=== PATIENT | female | born 1995 | race Caucasian/White ===

== ENCOUNTER 2020-09-21 10:53 | Outpatient (REF) | payer MEDICARE, MEDICAID, SELFPAY | END 2020-09-21 10:54 | disposition home or self-care (01) | LOC: HO.LAB 10:53 | PROVIDERS: Visit Provider Internal Medicine | DX: Z20.828 Contact with and (suspected) exposure to other viral communicable diseases (principal) | CPT/HCPCS: C9803; U0003 ==

== ENCOUNTER 2020-10-10 10:56 | Emergency (ER) | payer MEDICARE, MEDICAID, SELFPAY ==
[2020-10-10 10:59] VITALS: BP 107/59; PULSE 94; RESP 16; TEMP 36.1; O2SAT 98; BMI 37.2
[2020-10-10 11:38] LABS: UPreg QC Valid YES; Urine Pregnancy POSITIVE (NEGATIVE)
--- NOTE | 2020-10-10 12:07 | ED.SKABFB ---
HPI - Skin/Abscess/Foreign Bdy General Chief complaint: Skin/Abscess/Foreign Body Stated complaint: lump on face Time Seen by Provider: 10/10/20 11:11 Source: patient Mode of arrival: ambulatory Limitations: no limitations History of Present Illness complaint: abscess/boil Onset (ago): day(s) (2 days ) Tetanus up to date: yes Location: face (Tender area to the right side face just above the lip.) Severity: mild Context: none Treatments prior to arrival: none Related Data Previous Rx's Medication Instructions Recorded cephalexin [Keflex] 500 mg PO Q8H 7 Days #21 cap 10/10/20 mupirocin 1 appl TOPICAL TID 7 Days #22 g 10/10/20 Allergies Allergy/AdvReac Type Severity Reaction Status Date / Time perfume Allergy Unknown RESPIRATORY Verified 10/10/20 10:59 pollen extracts [POLLEN] Allergy Unknown HIVES Verified 10/10/20 10:59 DUST Allergy Unknown HIVES Uncoded 10/10/20 10:59 Review of Systems Review of Systems: Constitutional: No Weight loss, No Fever, No Chills, No Night Sweats, No Fatigue, No Malaise ENT/Mouth: No Hearing loss, No Ear Pain, No Nasal Congestion, No Sinus Pain, No Hoarseness, No sore throat, No Rhinorrhea, No Swallowing Difficulty Eyes: No Eye Pain, No Swelling, No Redness, No Foreign Body, No Discharge, No Vision Changes Cardiovascular: No Chest Pain, No SOB, No Dyspnea on Exertion, No Orthopnea, No Edema, No Palpitations Respiratory: No Cough Gastrointestinal: No abdominal Pain Musculoskeletal: No joint pain, No Myalgias, No Joint Swelling Skin: No Skin Lesions, No rash, as noted HPI Neuro: No Weakness, No Numbness, No Paresthesias, No Loss of Consciousness, No Dizziness, No Headache Psych: No Social Issues Heme/Lymph: No Bruising, No Bleeding,No Lymphadenopathy Endocrine: No Polyuria, No Polydipsia, No Temperature Intolerance Yes all other systems are reviewed and are negative [facility] Past Medical History Medical History (Updated 10/11/20 @ 00:00 by Background Daemon) Asthma Shingles Social History Social History Advance Directives: No Advance Directives Information Provided: Yes Physical Exam Vital Signs: Vital Signs: Last Vital Signs Temp 97.0 F 10/10/20 10:59 Pulse 94 12/23/20 10:59 Resp 16 10/10/20 10:59 BP 107/59 L 10/10/20 10:59 Pulse Ox 98 10/10/20 10:59 Body Mass Index 37.2 Reviewed Const: General: cooperative, healthy appearing and Physically active HENMT: Head: Yes normal to inspection Head images: 1. Less than 1 cm annular indurated area consistent with small developing abscess from follicular infection. Manual able to express very small amount of purulent discharge with and massage. No overt cellulitis or cellulitis. Assessment of any portion of the lip. This is just at the mid right nasolabial fold. Eyes: General: appearance normal, both eyes and all related structures Neck: Neck: Yes normal visual inspection Thyroid: Thyroid normal and asymmetrical Chest: Chest palpation & inspection: normal inspection of the chest Resp: Auscultation: clear to auscultation bilaterally Cardio: Rhythm: regular rhythm Heart sounds: S1 normal heart sound present and S2 normal heart sound present GI: Palpation (GI): Soft to palpation Course Course Course Narrative: Just prior to discharge states that she is also a week late for her period.- urine was requested which is positive. No overt infection. No complaints of pain or discomfort or nausea vomiting. based on last menstrual cycle she is currently 4 weeks 4 days gestation with estimated due date of 06/08/2021. At this point given that she is asymptomatic will advise her to follow up with her OBGYN team. MDM - Skin/Abscess/Foreign Bdy Lab Data Labs: Lab Results 10/10/20 Range/Units 11:25 Urine Test POSITIVE H (NEGATIVE) Discharge Plan Discharge Clinical Impression: Positive test, Folliculitis Patient Disposition: Home, Self-Care Instructions: (ED), Folliculitis (ED) Additional Instructions: You have a hair follicle infection just below the nose on the right side. This will require compresses Keep site clean and dry Use a topical antibiotic as prescribed Take oral antibiotic as prescribed Also because your 4 days late on her. UA as for test and urine test was positive today. Congratulations Follow-up with Dr. Woods as discussed Return if any concerns or worsening symptoms Thank you Prescriptions: New cephalexin [Keflex] 500 mg capsule 500 mg PO Q8H 7 Days Qty: 21 RF: 0 mupirocin 2 % ointment 1 appl topical TID 7 Days Qty: 22 RF: 0 Referrals: Je Woods MD [Physician] - 1 week Interventions: ED Discharge Assessment Last Done: 10/10/20 12:30 Discharge Date/Time: 10/10/20 12:30
== END 2020-10-10 12:30 | disposition home or self-care (01) ==
PROVIDERS: Nurse Practitioner Primary Care; Emergency Provider Emergency Medicine
DX: L73.9 Follicular disorder, unspecified (principal); Z32.01 Encounter for pregnancy test, result positive
CPT/HCPCS: 81025; 99283

== ENCOUNTER → 2020-10-24 10:16 | Outpatient (BNVA) | payer MEDICARE, MEDICAID, SELFPAY | PROVIDERS: Visit Provider Advanced Practice Midwife | DX: N92.6 Irregular menstruation, unspecified (principal); F43.10 Post-traumatic stress disorder, unspecified; Z79.899 Other long term (current) drug therapy | CPT/HCPCS: 99212 ==

== ENCOUNTER 2020-11-01 12:40 | Outpatient (REF) | payer MEDICARE, MEDICAID, SELFPAY ==
--- NOTE | 2020-11-01 12:42 | US_ITS ---
EXAMINATION: US OB LESS THAN 14 WEEKS CLINICAL INFORMATION: Irregular menses. COMPARISON: None TECHNIQUE: Transabdominal ultrasound of pelvis is performed. FINDINGS: There is a single intrauterine gestational sac and a single live fetus with a crown-rump length of 1.59 cm corresponding to 8 weeks, 0 days and VIRY of 06/13/2021. There is visualization of yolk sac and heart beat. The heart rate is 170 bpm. The right ovary measures 3.8 x 2.2 x 2.5 cm. Left ovary measures 3.6 x 2.1 x 3.3 cm. Both ovaries are unremarkable. There is no free fluid in the cul-de-sac. US/US OB <= 14 weeks fetus IMPRESSION: Single live intrauterine fetus with an ultrasound gestational age of 8 weeks and 0 days.
== END 2020-11-01 12:41 | disposition home or self-care (01) ==
LOC: HO.US 12:40
PROVIDERS: Visit Provider Advanced Practice Midwife
DX: O26.891 Other specified pregnancy related conditions, first trimester (principal); N92.6 Irregular menstruation, unspecified; Z3A.08 8 weeks gestation of pregnancy
CPT/HCPCS: 76801

== ENCOUNTER → 2020-11-30 13:15 | Outpatient (BNVA) | payer MEDICARE, MEDICAID, SELFPAY | PROVIDERS: Visit Provider Advanced Practice Midwife ==

== ENCOUNTER 2020-12-19 10:55 | Emergency (ER) | payer MEDICARE, MEDICAID, SELFPAY ==
--- NOTE | ~2020-12-19 | US_ITS ---
EXAMINATION: ULTRASOUND OB LIMITED. CLINICAL INFORMATION: Clinically 14 weeks. Unable to feel movements x2 days COMPARISON: None TECHNIQUE: Transabdominal ultrasound pelvis is performed. FINDINGS: There is intrauterine fetus with a heart rate of 150 bpm. There is visualization of pole and motion. Yolk sac is not seen. Right ovary measures 2.4 x 1.5 x 2.0 cm and appears unremarkable. Left ovary measures 3.3 x 1.9 x 2.8 seen. There is a heterogenous area in the anterior mid body of uterus, question fibroid versus contraction. There is no free fluid in the pelvis. US/US OB limited IMPRESSION: Live intrauterine fetus with a heart rate of 150 beats per minute The ovaries are unremarkable. Heterogeneous lesion anterior body of uterus likely fibroid or contraction.
--- NOTE | ~2020-12-19 | XR_ITS ---
EXAMINATION: XR CHEST CLINICAL INFORMATION: Dry cough, shortness of breath COMPARISON: Chest radiographs 07/15/2020 TECHNIQUE: Frontal view of the chest was obtained. FINDINGS: The lungs are clear. There is no pneumothorax, pleural reaction, airspace consolidation, or effusion. The heart is normal in size. The hilar and mediastinal contours and visualized bony structures are unremarkable. XR/XR chest 1V IMPRESSION: Unremarkable examination.
[2020-12-19 11:00] VITALS: BP 144/71; PULSE 88; RESP 14; TEMP 37.2; O2SAT 98; BMI 41.0
--- NOTE | 2020-12-19 12:24 | PC.NURSE ---
blood work drawn and sent, covid swab sent. us complteed at bedside, pt c/o rib pain, provider aware. pt drinking diet jojo jorge, tolerating po w/o issue.
[2020-12-19 12:25] LABS: MANUAL DIFF FLAG NO
[2020-12-19 12:26] LABS: Basophils Percent Auto 0.3 % (0-2); Eosinophils Absolute Auto 0.1 X10*3/uL (0.0-0.4); Eosinophils Percent Auto 0.8 % (0-4); Hematocrit 35.3 % (37-47); Hemoglobin 11.3 g/dl (12.0-16.0); Imm Gran Abs Auto 0.04 X10*3/uL (0.00-0.03); Imm Gran Pct Auto 0.3 % (0.0-0.4); Lymphocytes Absolute Auto 2.1 X10*3/uL (1.2-4.9); Lymphocytes Percent Auto 17.9 % (20-40); Mean Corpuscular Hemoglobin 27.4 pg (27.0-33.0); Mean Corpuscular Volume 85.5 fL (80-98); Mean Platelet Volume 11.5 fL (9.4-12.3); Monocytes Absolute Auto 0.6 X10*3/uL (0.1-1.2); Monocytes Percent Auto 4.8 % (2-11); Neutrophils Percent Auto 75.9 % (45-73); Platelet Count 248 X10*3/uL (160-400); Red Blood Count 4.13 X10*6/uL (4.20-5.50); Red Cell Distribution Width 12.9 % (11.0-16.0); White Blood Count 11.8 X10*3/uL (4.8-10.8)
[2020-12-19 12:33] LABS: INTERNATIONAL NORM RATIO 1.1 (0.9-1.1); Prothrombin Time 12.5 SEC (10.8-13.0)
[2020-12-19 12:45] LABS: COVID-19 Test Negative (Negative); IDNOW Serial# 9DD0AD1C
[2020-12-19 13:02] LABS: Alanine Aminotransferase 11 U/L (0-31); Alkaline Phosphatase 91 U/L (39-117); Anion Gap 12 (12-20); Aspartate Amino Transferase 13 U/L (5-31); Bilirubin Direct 0.2 mg/dL (0.0-0.5); Bilirubin Total 0.8 mg/dL (0.0-1.0); Blood Urea Nitrogen 11 mg/dL (9-16); Calcium 8.8 mg/dL (8.4-10.2); Carbon Dioxide 23 mmol/L (22-29); Chloride 105 mmol/L (96-108); Creatinine Clr Calc Pharmacy 134.2; Estimated Glomerular Filt Rate > 60; Glucose Random 85 mg/dL (60-115); Magnesium 1.8 mg/dL (1.6-2.6); Potassium 4.2 mmol/L (3.3-5.1); Sodium 136 mmol/L (135-145); Total Protein 6.7 g/dL (6.5-8.0)
[2020-12-19] MEDS: Albuterol Sulfate (0.083%) 2.5 MG/3 ML VIAL.NEB 10 MG INHALE (13:02)
[2020-12-19 13:06] VITALS: PULSE 78; O2SAT 100
[2020-12-19 13:47] LABS: HCG Quantitative 43489 mIU/mL
[2020-12-19] MEDS: Acetaminophen 325 MG TABLET 975 MG PO (13:47)
--- NOTE | 2020-12-19 13:53 | ED_ITS ---
HPI - Asthma General Chief Complaint: Dyspnea Stated Complaint: asthma, , hasn't felt baby move in 2 days Time Seen by Provider: 12/19/20 11:12 Source: patient Mode of arrival: ambulatory Limitations: no limitations History of Present Illness HPI Narrative: 25-year-old female who is approximately 16 weeks with a past medical history of asthma presenting to the ED with complaints of a dry cough with rib cage pain with coughing since yesterday worse today. Reports that she does not have any asthma medication due to her asthma only flares up when she is under a lot of stress. Reports that she is currently in a halfway with her other 3 kids and just got an apartment therefore she will soon be out of the halfway. Reports she was also concerned due to she has not felt her baby move in the past 4 days. Denies any headaches, dizziness, lightheadedness, changes in vision, nausea/vomiting, chest pain, dyspnea on exertion, orthopnea, palpitations, abdominal pain, vaginal discharge, vaginal bleeding, dysuria, hematuria, back pain or lower extremity edema. Denies recent travel or sick contacts. MD complaint: asthma attack , shortness of breath and wheezing Onset (ago): day(s) (2 days ) Severity: moderate and worse than usual Context: none known Associated symptoms: dry cough Asthma History: childhood onset Related Data Current Asthma Therapy: none Previous Rx's Medication Instructions Recorded cephalexin [Keflex] 500 mg PO Q8H 7 Days #21 cap 10/10/20 mupirocin 1 appl TOPICAL TID 7 Days #22 g 10/10/20 doxylamine succinate 25 mg tablet 12.5 mg PO BEDTIME PRN #30 tab 10/29/20 vitamins with calcium 1 tab PO DAILY 30 Days #30 tab 10/29/20 no.72-iron 29 mg-folic acid 1 mg tablet pyridoxine (vitamin B6) 25 mg 25 mg PO TID 30 Days #90 tab 10/29/20 tablet acetaminophen [Tylenol Extra 1,000 mg PO QID PRN #14 tab 12/19/20 Strength] albuterol sulfate 0.63 mg INHALATION QID PRN #75 ml 12/19/20 albuterol sulfate 1 inh INHALATION QID PRN #8.5 g 12/19/20 azithromycin See Rx Instructions .ROUTE 12/19/20 .COMPLEX #6 tab nebulizers [AeroEclipse II #1 ea 12/19/20 Nebulizer] oxycodone 5 mg PO BID PRN #10 tab 12/19/20 prednisone 40 mg PO DAILY 5 Days #10 tab 12/19/20 Allergies Allergy/AdvReac Type Severity Reaction Status Date / Time perfume Allergy Unknown RESPIRATORY Verified 10/24/20 10:31 pollen extracts [POLLEN] Allergy Unknown HIVES Verified 10/24/20 10:31 DUST Allergy Unknown HIVES Uncoded 10/10/20 10:59 Review of Systems Review of Systems: Constitutional : denies med noncompliance, no history of PE or DVT, denies recent travel, No Fever, No Chills ENT/Mouth : No Hoarseness, No sore throat, No Rhinorrhea Eyes: No Redness, No Discharge, No Vision Changes Cardiovascular : No Chest Pain, No SOB, No Dyspnea on Exertion, No Edema, no pleurisy, Respiratory : + Cough, No Sputum, no stridor, no hemoptysis, Gastrointestinal : No Nausea, No Vomiting, No Diarrhea, No abdominal Pain Genitourinary : No Dysuria, No Hematuria, no vaginal bleeding Musculoskeletal : No joint pain, No Myalgias Extremities: no extremity swelling /pain Skin : No rash, no itching, no swelling Neuro : No Weakness, No Numbness, No Headache Psych : No anxiety, depression Heme/Lymph: No Bruising, No Bleeding Endocrine : No Polyuria, No Polydipsia Yes all other systems are reviewed and are negative [facility] Past Medical History Attestation statement: The following information was validated with the patient. Medical History Asthma PTSD (post-traumatic stress disorder) Shingles Surgical History History of 3 sections Social History Social History Alcohol intake: never Smoking Status: Never smoker Use of substances other than those prescribed or required for medical reasons: No Substance Use Type: Marijuana Advance Directives: No Advance Directives Information Provided: No Gender identity: female Physical Exam Vital Signs: Vital Signs: Last Vital Signs Temp 98.9 F 12/19/20 11:00 Pulse 78 12/19/20 13:06 Resp 14 12/19/20 11:00 BP 144/71 H 12/19/20 11:00 Pulse Ox 98 12/19/20 11:00 Body Mass Index 41.0 vital signs have been reviewed as normal and appeared to be correct. Blood pressure normal. Heart rate normal. Respiration rate normal. Temperature normal. Oxygen saturation normal. Appearance: Alert. Oriented X3. No acute distress. Head: Normal external exam. Normocephalic. Eyes: PERRLA. EOMI. Conjunctiva and sclera normal. Eyelids normal. ENT: Pharynx normal. Uvula midline. Moist mucous membranes. No trismus noted. No drooling noted. No muffled voice noted. Neck: Normal inspection. Neck supple. FROM. No adenopathy. No meningeal signs. CVS: Normal heart rate and rhythm. Heart sound normal. No murmurs noted. Pulses normal throughout. Respiratory: No respiratory distress. Painless inspiration. Breath sounds normal. Positive inspiratory and expiratory wheezing throughout. No rales/rhonchi noted. Chest nontender. No accessory muscle usage noted or decreased air movement noted. Abdomen: Gravid uterus consistent with dates. Soft and nontender. Nondistended. No guarding. No rigidity. Bowel sounds normal in all 4 quadrants. No distention noted. No organomegaly noted. No visible injury noted. No rebound tenderness. Negative Rovsing sign. Negative obturator's sign. Negative psoas sign. Negative Humphrey sign. Back: No CVA tenderness. Full range of motion noted. Skin: Skin warm and dry. Normal skin color. Normal skin turgor. No rashes/lesions/lacerations noted. Extremities: Extremities exhibit normal range of motion. No calf tenderness noted. Extremities nontender. Neuro: Oriented X 3. No motor deficit. No sensory deficit. Reflexes normal. Course Course Course Narrative: 25-year-old female who is approximately 16 weeks with a past medical history of asthma presenting to the ED with complaints of a dry cough with rib cage pain with coughing since yesterday worse today. Patient also concerned of not feeling the movement for the past 4 days. - labs obtained patient mildly elevated white blood cell count 37240. Otherwise all other labs are within normal limits. Serum quant appropriately elevated. COVID swab negative. Chest x-ray negative for pneumonia or any other acute processes. ultrasound revealed live intrauterine fetus with heart rate of 150 the ovaries are unremarkable they are questioning a fibroid I consulted with Dr. Woods and he reported that is probably a fibroid and stated anyway pre term labor by definition is after 20 weeks and patient is only 16 weeks. - therefore will DC home with antibiotics and symptomatic treatment along with oxycodone for the patient's ribcage pain when she coughs I explained to her that the oxycodone can pass into the placenta and she understands the risks and she still wanted the oxycodone. Along with instructions to return if any new or worsening symptoms to follow up with PCP/OBGYN stencil sprayer. Patient understands agrees with plan. MDM - Asthma Medical Records Attestation: I reviewed the patient's medical records. Lab Data Attestation: I reviewed the patient's lab results. Result diagrams: 12/19/20 12:18 12/19/20 12:18 Labs: Lab Results 12/19/20 12/19/20 12/19/20 Range/Units 12:18 12:18 12:18 WBC 11.8 H (4.8-10.8) X10*3/uL RBC 4.13 L (4.20-5.50) X10*6/uL Hgb 11.3 L (12.0-16.0) g/dl Hct 35.3 L (37-47) % MCV 85.5 (80-98) fL MCH 27.4 (27.0-33.0) pg MCHC 32.0 (31.0-35.0) g/dl RDW 12.9 (11.0-16.0) % Plt Count 248 (160-400) X10*3/uL MPV 11.5 (9.4-12.3) fL Immature Gran % (Auto) 0.3 (0.0-0.4) % Neut % (Auto) 75.9 H (45-73) % Lymph % (Auto) 17.9 L (20-40) % Amador % (Auto) 4.8 (2-11) % Eos % (Auto) 0.8 (0-4) % Baso % (Auto) 0.3 (0-2) % Lymph # (Auto) 2.1 (1.2-4.9) X10*3/uL Amador # (Auto) 0.6 (0.1-1.2) X10*3/uL Eos # (Auto) 0.1 (0.0-0.4) X10*3/uL Baso # (Auto) 0.0 (0.0-0.2) X10*3/uL Abs Immat Gran (auto) 0.04 H (0.00-0.03) X10*3/uL Absolute Neuts (auto) 9.0 H (2.0-8.3) X10*3/uL Absolute Nucleated RBC 0.000 (0.0-0.012) X10*3/uL Nucleated RBC % (auto) 0.0 (0.0-0.2) /100WBC PT (10.8-13.0) SEC INR (0.9-1.1) Sodium 136 (135-145) mmol/L Potassium 4.2 (3.3-5.1) mmol/L Chloride 105 (96-108) mmol/L Carbon Dioxide 23 (22-29) mmol/L Anion Gap 12 (12-20) BUN 11 (9-16) mg/dL Creatinine 0.65 (0.5-1.4) mg/dL Estim Creat Clear Calc 134.2 Estimated GFR > 60 Random Glucose 85 (60-115) mg/dL Calcium 8.8 (8.4-10.2) mg/dL Magnesium 1.8 (1.6-2.6) mg/dL Total Bilirubin 0.8 (0.0-1.0) mg/dL Direct Bilirubin 0.2 (0.0-0.5) mg/dL AST 13 (5-31) U/L ALT 11 (0-31) U/L Alkaline Phosphatase 91 (39-117) U/L Total Protein 6.7 (6.5-8.0) g/dL Albumin 4.0 (3.5-5.0) g/dL Beta HCG, Quant mIU/mL COVID-19 (JOEY) Negative (Negative) COVID-19 Clin Com See Note 12/19/20 12/19/20 Range/Units 12:18 12:18 WBC (4.8-10.8) X10*3/uL RBC (4.20-5.50) X10*6/uL Hgb (12.0-16.0) g/dl Hct (37-47) % MCV (80-98) fL MCH (27.0-33.0) pg MCHC (31.0-35.0) g/dl RDW (11.0-16.0) % Plt Count (160-400) X10*3/uL MPV (9.4-12.3) fL Immature Gran % (Auto) (0.0-0.4) % Neut % (Auto) (45-73) % Lymph % (Auto) (20-40) % Amador % (Auto) (2-11) % Eos % (Auto) (0-4) % Baso % (Auto) (0-2) % Lymph # (Auto) (1.2-4.9) X10*3/uL Amador # (Auto) (0.1-1.2) X10*3/uL Eos # (Auto) (0.0-0.4) X10*3/uL Baso # (Auto) (0.0-0.2) X10*3/uL Abs Immat Gran (auto) (0.00-0.03) X10*3/uL Absolute Neuts (auto) (2.0-8.3) X10*3/uL Absolute Nucleated RBC (0.0-0.012) X10*3/uL Nucleated RBC % (auto) (0.0-0.2) /100WBC PT 12.5 (10.8-13.0) SEC INR 1.1 (0.9-1.1) Sodium (135-145) mmol/L Potassium (3.3-5.1) mmol/L Chloride (96-108) mmol/L Carbon Dioxide (22-29) mmol/L Anion Gap (12-20) BUN (9-16) mg/dL Creatinine (0.5-1.4) mg/dL Estim Creat Clear Calc Estimated GFR Random Glucose (60-115) mg/dL Calcium (8.4-10.2) mg/dL Magnesium (1.6-2.6) mg/dL Total Bilirubin (0.0-1.0) mg/dL Direct Bilirubin (0.0-0.5) mg/dL AST (5-31) U/L ALT (0-31) U/L Alkaline Phosphatase (39-117) U/L Total Protein (6.5-8.0) g/dL Albumin (3.5-5.0) g/dL Beta HCG, Quant 87339 mIU/mL COVID-19 (JOEY) (Negative) COVID-19 Clin Com Imaging Data Chest x-ray: Attestation: I personally reviewed and interpreted this imaging study as follows: Radiologist's impression: FINDINGS: The lungs are clear. There is no pneumothorax, pleural reaction, airspace consolidation, or effusion. The heart is normal in size. The hilar and mediastinal contours and visualized bony structures are unremarkable. XR/XR chest 1V IMPRESSION: Unremarkable examination. ultrasound: Attestation: I personally reviewed and interpreted this imaging study as follows: Radiologist's impression: FINDINGS: There is intrauterine fetus with a heart rate of 150 bpm. There is visualization of pole and motion. Yolk sac is not seen. Right ovary measures 2.4 x 1.5 x 2.0 cm and appears unremarkable. Left ovary measures 3.3 x 1.9 x 2.8 seen. There is a heterogenous area in the anterior mid body of uterus, question fibroid versus contraction. There is no free fluid in the pelvis. US/US OB limited IMPRESSION: Live intrauterine fetus with a heart rate of 150 beats per minute The ovaries are unremarkable. Heterogeneous lesion anterior body of uterus likely fibroid or contraction. Discharge Plan Discharge Clinical Impression: Asthma with exacerbation, Normal Patient Disposition: Home, Self-Care Instructions: Asthma (ED) Additional Instructions: I had a lengthy conversation about narcotics during and the oxycodone being able to pass into the placenta you were comfortable with having an oxycodone prescription due to your reported the Tylenol was not helping her ribcage pain. Take as prescribed. Return if any new or worsening symptoms and follow-up with your primary care provider/OBGYN/stencil sprayer. Prescriptions: New azithromycin 250 mg tablet See Rx Instructions .ROUTE .COMPLEX Qty: 6 RF: 0 acetaminophen [Tylenol Extra Strength] 500 mg tablet 1,000 mg PO QID PRN (Reason: fever or pain) Qty: 14 RF: 0 oxycodone 5 mg tablet 5 mg PO BID PRN (Reason: pain) Qty: 10 RF: 0 albuterol sulfate 0.63 mg/3 mL solution for nebulization 0.63 mg inhalation QID PRN (Reason: shortness of breath or wheezing) Qty: 75 RF: 0 prednisone 20 mg tablet 40 mg PO DAILY 5 Days Qty: 10 RF: 0 albuterol sulfate 90 mcg/actuation HFA aerosol inhaler 1 inh inhalation QID PRN (Reason: shortness of breath or wheezing) Qty: 8.5 RF: 0 (DME) AeroEclipse II Nebulizer Misc See Rx Instructions .ROUTE .MEDSUPPLY Qty: 1 RF: 0 No Action Unisom (doxylamine) 25 mg tablet 12.5 mg PO BEDTIME PRN (Reason: sleep) Qty: 30 RF: 0 pyridoxine (vitamin B6) 25 mg tablet 25 mg PO TID 30 Days Qty: 90 RF: 1 Plus 29 mg iron- 1 mg tablet 1 tab PO DAILY 30 Days Qty: 30 RF: 11 cephalexin [Keflex] 500 mg capsule 500 mg PO Q8H 7 Days Qty: 21 RF: 0 mupirocin 2 % ointment 1 appl topical TID 7 Days Qty: 22 RF: 0 Referrals: [facility] [Primary Care Provider] - 2 days Print Language: Pashto
== END 2020-12-19 14:24 | disposition home or self-care (01) ==
PROVIDERS: Physician Assistant Medical; Emergency Provider Emergency Medicine
DX: J45.901 Unspecified asthma with (acute) exacerbation (principal); R06.00 Dyspnea, unspecified; Z20.822 Contact with and (suspected) exposure to COVID-19
CPT/HCPCS: 36415; 71045; 76815; 80048; 80076; 83735; 84702; 85025; 85610; 87635; 94640; 94644; 99284

== ENCOUNTER 2023-07-20 15:59 | Outpatient (REF) | payer MEDICARE, MEDICAID, SELFPAY ==
[2023-07-20 17:57] LABS: Alanine Aminotransferase 76 U/L (0-31); Albumin Level 4.1 g/dL (3.5-5.0); Alkaline Phosphatase 131 U/L (39-117); Amylase 52 U/L (28-100); Anion Gap 12 (12-20); Aspartate Amino Transferase 77 U/L (5-31); Bilirubin Total 0.4 mg/dL (0.0-1.0); Blood Urea Nitrogen 9 mg/dL (9-16); Calcium 8.5 mg/dL (8.4-10.2); Carbon Dioxide 28 mmol/L (22-29); Chloride 102 mmol/L (96-108); Estimated Glomerular Filt Rate > 60; Glucose Random 92 mg/dL (60-115); Lipase 18 U/L (8-78); Potassium 3.8 mmol/L (3.3-5.1); Sodium 138 mmol/L (135-145); Total Protein 7.3 g/dL (6.5-8.0)
[2023-07-20 18:36] LABS: Erythrocyte Sedimentation Rate 8 MM/HR (0-20)
[2023-07-21 08:22] LABS: HBsAGNum1 0.26 S/CO (0.00-0.99); Hepatitis A Antibody IgM 0.22 Index (0-0.79); Hepatitis B Core Antibody Nonreactive (Nonreactive); Hepatitis B Surface Antigen Negative (Negative); ~HepC Num1 0.18 S/CO (0.00-0.79); ~Hepatitis A Antibody IgM Nonreactive (Nonreactive); ~Hepatitis B Surface Antibody REACTIVE (Nonreactive); ~Hepatitis C Antibody Nonreactive (Nonreactive)
[2023-07-23 13:44] LABS: Gliadin Deamidated IgA Ab <1.0 U/mL; Gliadin Deamidated IgG Ab <1.0 U/mL; Transglutaminase Ab IgG 27.4 U/mL; Transglutaminase IgA <1.0 U/mL
[2023-07-23 16:04] LABS: Immunoglobulin A 256 mg/dL (47-310)
[2023-07-28 13:19] LABS: Endomysial IgA Antibody Negative (Negative)
== END 2023-07-20 16:00 | disposition home or self-care (01) ==
LOC: HO.HHCL 15:59
PROVIDERS: Visit Provider Emergency Medicine
DX: R10.84 Generalized abdominal pain (principal); Z11.59 Encounter for screening for other viral diseases; Z72.89 Other problems related to lifestyle
CPT/HCPCS: 36415; 80053; 82150; 82274; 82784; 83690; 85652; 86231; 86258; 86364; 86704; 86706; 86709; 86803; 87338; 87340

== ENCOUNTER 2023-07-24 20:16 | Emergency (ER) | payer MEDICARE, MEDICAID, SELFPAY ==
[2023-07-24 20:45] VITALS: BP 150/101; PULSE 80; RESP 18; TEMP 37.1; O2SAT 99; BMI 42.8
--- NOTE | 2023-07-25 00:01 | ED.GENADULT ---
HPI - General Adult General Chief complaint: Wound/Laceration Stated complaint: finger infection, blood pressure has been high Time Seen by Provider: 07/24/23 23:32 Source: patient, RN notes reviewed and old records reviewed Mode of arrival: ambulatory Limitations: no limitations History of Present Illness HPI narrative: 28-year-old female presents for evaluation of pain to her right 3rd finger. She reports that she had some redness and a bump to the area for the last 4 days that has been getting larger and more painful Patient went to [facility] 2 days ago and was told ?just soak in hot water every 4 hours. She reports that she has been doing this without any improvement and believes her symptoms are actually getting worse Denies any fevers Patient does not have diabetes Related Data Previous Rx's Medication Instructions Recorded cephalexin 500 mg capsule (Keflex) 500 mg PO Q8H 7 days #21 caps 10/10/20 mupirocin 2 % topical ointment 1 appl topical TID 7 days #22 grams 10/10/20 doxylamine succinate 25 mg tablet 12.5 mg (1/2 x 25 mg) PO BEDTIME 10/29/20 (Unisom (doxylamine)) PRN sleep #30 tabs vitamins with calcium 1 tab PO DAILY 30 days #30 tabs 10/29/20 no.72-iron 29 mg-folic acid 1 mg tablet ( Plus) pyridoxine (vitamin B6) 25 mg 25 mg PO TID 30 days #90 tabs 10/29/20 tablet acetaminophen 500 mg tablet 1,000 mg (2 x 500 mg) PO QID PRN 12/19/20 (Tylenol Extra Strength) fever or pain #14 tabs albuterol sulfate 0.63 mg/3 mL 0.63 mg (3 mL) inhalation QID PRN 12/19/20 solution for nebulization shortness of breath or wheezing #75 mL albuterol sulfate 90 mcg/actuation 1 inh inhalation QID PRN shortness 12/19/20 aerosol inhaler of breath or wheezing #8.5 grams azithromycin 250 mg tablet See Rx Instructions PO .COMPLEX #6 12/19/20 tabs nebulizers (AeroEclipse II #1 ea 12/19/20 Nebulizer) oxycodone 5 mg tablet 5 mg PO BID PRN pain #10 tabs 12/19/20 prednisone 20 mg tablet 40 mg (2 x 20 mg) PO DAILY rash 5 12/19/20 days #10 tabs cephalexin 500 mg capsule 500 mg PO QID #28 caps 07/25/23 sulfamethoxazole 800 1 tab PO BID #14 tabs 07/25/23 mg-trimethoprim 160 mg tablet (Bactrim DS) Allergies Allergy/AdvReac Type Severity Reaction Status Date / Time perfume Allergy Unknown RESPIRATORY Verified 07/24/23 20:44 pollen extracts [POLLEN] Allergy Unknown HIVES Verified 07/24/23 20:44 DUST Allergy Unknown HIVES Uncoded 10/10/20 10:59 Review of Systems Constitutional: Constitutional: Denies chills and Denies fever(s) Integumentary/Breasts: Skin/Breast: Reports erythema Comments: Patient has redness and swelling just behind the nail of the 3rd finger PMFSH Past Medical History Medical History Asthma PTSD (post-traumatic stress disorder) Shingles Surgical History History of 3 sections Social History Social History Alcohol intake: never Substance Use Type: Marijuana Advance Directives: No Advance Directives Information Provided: No Gender identity: Female Physical Exam ED Vital Signs: Vital Signs - 24 hr 07/24/23 20:45 07/25/23 00:23 Temperature 98.7 F 98.2 F Pulse Rate 80 71 Respiratory Rate 18 18 Blood Pressure 150/101 H 151/80 H Pulse Oximetry 99 100 Oxygen Delivery Method Room Air Room Air BMI result Body Mass Index 42.8 Const General: healthy appearing, comfortable, no acute distress, alert and awake Nutritional Appearance: well nourished Orientation/consciousness: patient oriented x3 HENMT Head: Yes normocephalic and Yes atraumatic Eyes Eyelids: Yes eyelids normal Conjunctivae: conjunctivae normal Sclerae: sclerae normal Corneas: corneas normal Pupils: Equal, round and reactive pupils present EOM: EOMs intact bilaterally Neck Neck: Yes full ROM Resp Effort & Inspection: normal respiratory effort, able to speak in complete sentences and not labored Skin Other: Patient has a large paronychia as proximal to the right 3rd nail bed. It is approximately 2 cm wide and a cm tall. She has erythema extending proximally up the finger to about midway up the interval. Full range of motion with flexion and extension of the right 3rd finger. General skin exam: elasticity normal Neuro General: patient oriented x3 Cranial nerves: Yes Equal, round and reactive pupils present and Yes Bilaterally intact EOM present Cognition (Neuro): normal cognition Extrem Other: Moving all extremities well without any obvious deformities Procedures Abscess I/D Site: hand Side (if applicable): right (Third finger) Local Anesthetic: lidocaine 1% (Digital block of the right 3rd finger) Amount of anesthesia used (mL): 3 Technique: incised with blade Amount of fluid expressed (mL): 4 Sent for culture/gram staining?: No Irrigation: No Packing used?: none Complications: other (Patient tolerated the procedure well, there were no complications) Medical Decision Making Medical Decision Making MDM Narrative: 28-year-old female who is not a diabetic presents for evaluation of a fairly significant paronychia of the right 3rd finger. Will get an x-ray to rule out osteomyelitis. She has no fever, doubt systemic infection. Patient will require incision and drainage of the paronychia and will require antibiotics. See procedure note Differential Diagnosis Differential Diagnoses: The differential diagnosis associated with the presentation includes Cellulitis Paronychia Osteomyelitis Abscess Discharge Plan Discharge Clinical Impression: Paronychia of finger of right hand Patient Disposition: Home, Self-Care Instructions: Paronychia (ED) Additional Instructions: Take both antibiotics as prescribed You may continue to do warm soaks with the finger Return for new or worsening symptoms, especially develop a fever or if the redness spreads to your hand Prescriptions: New sulfamethoxazole-trimethoprim [Bactrim DS] 800-160 mg tablet 1 tab PO BID Qty: 14 0RF cephalexin 500 mg capsule 500 mg PO QID Qty: 28 0RF No Action Unisom (doxylamine) 25 mg tablet 12.5 mg PO BEDTIME PRN (Reason: sleep) Qty: 30 0RF pyridoxine (vitamin B6) 25 mg tablet 25 mg PO TID 30 Days Qty: 90 1RF Plus 29 mg iron- 1 mg tablet 1 tab PO DAILY 30 Days Qty: 30 11RF cephalexin [Keflex] 500 mg capsule 500 mg PO Q8H 7 Days Qty: 21 0RF mupirocin 2 % ointment 1 appl topical TID 7 Days Qty: 22 0RF azithromycin 250 mg tablet See Rx Instructions .ROUTE .COMPLEX Qty: 6 0RF Rx Instructions: take 500 mg today (day 1), then 250 mg for 4 days (days 2-5) acetaminophen [Tylenol Extra Strength] 500 mg tablet 1,000 mg PO QID PRN (Reason: fever or pain) Qty: 14 0RF oxycodone 5 mg tablet 5 mg PO BID PRN (Reason: pain) Qty: 10 0RF albuterol sulfate 0.63 mg/3 mL solution for nebulization 0.63 mg inhalation QID PRN (Reason: shortness of breath or wheezing) Qty: 75 0RF prednisone 20 mg tablet 40 mg PO DAILY 5 Days Qty: 10 0RF albuterol sulfate 90 mcg/actuation HFA aerosol inhaler 1 inh inhalation QID PRN (Reason: shortness of breath or wheezing) Qty: 8.5 0RF (DME) AeroEclipse II Nebulizer Misc See Rx Instructions .ROUTE .MEDSUPPLY Qty: 1 0RF Rx Instructions: As directed
[2023-07-25 00:23] VITALS: BP 151/80; PULSE 71; RESP 18; TEMP 36.8; O2SAT 100
--- NOTE | 2023-07-25 01:12 | PC.NURSE ---
This RN assumed care upon patient being brought back to [facility]. Patient AOx4 throughout duration of stay. Patient was medicated per DEC, vital signs stable
== END 2023-07-25 02:09 | disposition home or self-care (01) ==
PROVIDERS: Emergency Provider Emergency Medicine
DX: L03.011 Cellulitis of right finger (principal); M79.644 Pain in right finger(s); F12.90 Cannabis use, unspecified, uncomplicated
CPT/HCPCS: 10060; 73140; 99283; 99284

== ENCOUNTER 2023-09-16 17:35 | Emergency (ER) | payer MEDICARE, MEDICAID, SELFPAY ==
--- NOTE | ~2023-09-16 | CT_ITS ---
EXAMINATION: CT ABDOMEN AND PELVIS WITH CONTRAST CLINICAL INFORMATION: Upper abdominal pain COMPARISON: 01/11/2020 TECHNIQUE: Multidetector volumetric images were obtained from the superior aspect of the liver through the pubic symphysis following administration 85 mL of Omnipaque 350 intravenous contrast. Sagittal and coronal reformatted images were obtained on the technologist's workstation. Oral contrast: No This CT examination was performed using dose optimization techniques as appropriate, variously including the following: *Automated exposure control *Adjustment of mA and/or kV according to patient size (this includes techniques or standardized protocols for targeted exams where dose is matched to indication/reason for exam; i.e. extremities or head) *Use of iterative reconstruction technique DLP: 717 mGy-cm FINDINGS: LUNG BASES: The visualized lung bases are unremarkable. LIVER, GALLBLADDER, AND BILIARY TREE: The liver demonstrates hypoattenuation consistent with steatosis. No focal hepatic lesion or biliary ductal dilatation is identified. The gallbladder is unremarkable with no evidence of radiopaque gallstones, gallbladder wall thickening, or obvious pericholecystic inflammatory changes. PANCREAS: Unremarkable. SPLEEN: Unremarkable. ADRENAL GLANDS: Unremarkable. KIDNEYS AND URETERS: Bilateral nephrograms are symmetric. No hydronephrosis or obstructing calculus identified. BLADDER: Mildly distended and grossly unremarkable. GASTROINTESTINAL TRACT: No evidence of bowel obstruction or significant wall thickening. The appendix is unremarkable. No free fluid or free air is seen. ABDOMINAL WALL: No significant hernia is appreciated. LYMPH NODES: Normal. VASCULAR: Unremarkable. PELVIC VISCERA: Bilateral cystic structures in the adnexa measuring up to approximately 2.8 cm. Findings are overwhelmingly likely to represent normal ovarian follicles. No followup imaging recommended. OSSEOUS STRUCTURES: Unremarkable. CT/CT abdomen pelvis w IV con IMPRESSION: No acute findings identified in the abdomen/pelvis. Hepatic steatosis.
--- NOTE | ~2023-09-16 | US_ITS ---
EXAMINATION: US ABDOMEN LIMITED CLINICAL INFORMATION: Gallbladder pain. COMPARISON: 11/24/2016 TECHNIQUE: Real-time imaging of the gallbladder and common bile duct. FINDINGS: The gallbladder appears physiologically distended. Gallbladder wall thickness is within normal limits, measuring 0.2 cm. No pericholecystic fluid or gallstones are seen. Common bile duct is nondilated, measuring 0.3 cm in diameter. US/US abdomen limited IMPRESSION: No abnormality demonstrated.
[2023-09-16 17:46] VITALS: BP 162/88; PULSE 80; O2SAT 99
[2023-09-16 19:27] VITALS: BP 153/85; PULSE 84; RESP 20; TEMP 37.1; O2SAT 100; BMI 42.6
--- NOTE | 2023-09-16 19:27 | ED_ITS ---
HPI - Abdominal Pain General Chief Complaint: Abdominal Pain Stated Complaint: Upper abd pain Time Seen by Provider: 09/17/23 02:22 Source: patient Mode of arrival: EMS History of Present Illness HPI narrative: 28-year-old female without significant past medical history presents via ambulance for right upper abdominal pain associated chills, vomiting as well as diarrhea and states that this is been ongoing for approximately 1 month. Related Data Previous Rx's Medication Instructions Recorded cephalexin 500 mg capsule (Keflex) 500 mg PO Q8H 7 days #21 caps 10/10/20 mupirocin 2 % topical ointment 1 appl topical TID 7 days #22 grams 10/10/20 doxylamine succinate 25 mg tablet 12.5 mg (1/2 x 25 mg) PO BEDTIME 10/29/20 (Unisom (doxylamine)) PRN sleep #30 tabs vitamins with calcium 1 tab PO DAILY 30 days #30 tabs 10/29/20 no.72-iron 29 mg-folic acid 1 mg tablet ( Plus) pyridoxine (vitamin B6) 25 mg 25 mg PO TID 30 days #90 tabs 10/29/20 tablet acetaminophen 500 mg tablet 1,000 mg (2 x 500 mg) PO QID PRN 12/19/20 (Tylenol Extra Strength) fever or pain #14 tabs albuterol sulfate 0.63 mg/3 mL 0.63 mg (3 mL) inhalation QID PRN 12/19/20 solution for nebulization shortness of breath or wheezing #75 mL albuterol sulfate 90 mcg/actuation 1 inh inhalation QID PRN shortness 12/19/20 aerosol inhaler of breath or wheezing #8.5 grams azithromycin 250 mg tablet See Rx Instructions PO .COMPLEX #6 12/19/20 tabs nebulizers (AeroEclipse II #1 ea 12/19/20 Nebulizer) oxycodone 5 mg tablet 5 mg PO BID PRN pain #10 tabs 12/19/20 prednisone 20 mg tablet 40 mg (2 x 20 mg) PO DAILY rash 5 12/19/20 days #10 tabs cephalexin 500 mg capsule 500 mg PO QID #28 caps 07/25/23 sulfamethoxazole 800 1 tab PO BID #14 tabs 07/25/23 mg-trimethoprim 160 mg tablet (Bactrim DS) omeprazole 20 mg capsule,delayed 20 mg PO DAILY #30 caps 09/17/23 release Allergies Allergy/AdvReac Type Severity Reaction Status Date / Time perfume Allergy Unknown RESPIRATORY Verified 09/16/23 19:26 pollen extracts [POLLEN] Allergy Unknown HIVES Verified 09/16/23 19:26 DUST Allergy Unknown HIVES Uncoded 10/10/20 10:59 Review of Systems Review of Systems Pertinent positives and negatives as stated in the [facility] Past Medical History Source: nursing notes reviewed Medical History PTSD (post-traumatic stress disorder) Asthma Shingles Surgical History History of 3 sections Social History Social History Alcohol intake: never Smoked in Last 30 Days: No Use of substances other than those prescribed or required for medical reasons: No Substance Use Type: Marijuana Advance Directives: No Advance Directives Information Provided: No Patient : No Gender identity: Female Physical Exam ED Vital Signs: Vital Signs - 24 hr 09/16/23 19:27 09/17/23 01:14 Temperature 98.7 F 98.4 F Pulse Rate 84 79 Respiratory Rate 20 16 Blood Pressure 153/85 H 129/66 Pulse Oximetry 100 98 Oxygen Delivery Method Room Air Room Air BMI result Body Mass Index 42.6 VITAL SIGNS: Reviewed. GENERAL: Well developed, well nourished, in no acute distress. HEAD: Normocephalic/atraumatic EYES: PERRLA, EOMI EARS: Ext canals without abnormality, TMs non-bulging and non-erythematous NOSE: Nares patent bilateral OROPHARYNX: no oral lesions noted, posterior pharynx clear and non-erythematous without noted tonsillar enlargement/erythema/exudates NECK: Supple, no adenopathy LUNGS: Normal breath sounds. No adventitious sounds or accessory muscle use. SpO2<98> CARDIOVASCULAR: Regular rate and rhythm without noted murmurs ABDOMEN: Soft, right upper quadrant pain on palpation without rebound, non- distended with bowel sounds. MUSCULOSKELETAL: No tenderness, deformities, or effusions noted on gross inspection. EXTREMITIES: No cyanosis, clubbing or edema. SKIN: Inspection of the skin reveals no rashes NEUROLOGIC: Alert and oriented x 4. Strength and sensation to light touch were grossly intact x 4. Course Course Course Narrative: This is an RME: Additional HPI, ROS, PE not included below will be deferred to primary provider. This is a [id number]-female presenting to the ER with a complaint of abdominal pain, diarrhea, and bright red blood per rectum x 1 month. Seen by pcp who told her to come to the ER. Had 4 c-sections. Plan: labs, UA Medical Decision Making Medical Decision Making [facility] Narrative: 0317: 28-year-old female with history and clinical presentation, DDX: Cholecystitis, pancreatitis, gastritis, pyelonephritis, possible constipation, UTI. Patient received lactic acid/blood culture/antibiotics, IV fluids. I reviewed all investigations and patient has a leukocytosis with left shift although this does appear to be somewhat chronic since 2019. Patient is afebrile and does not present with tachycardia or tachypnea. There is no evidence of anemia or thrombocytopenia. Chemistry indices are grossly within normal limits and there is no evidence of KIMO and there is no electrolyte derangements. There is a chronic stable transaminemia with elevated alkaline phosphatase. Beta hCG is undetectable. Urinalysis appears to be contaminated. Ultrasound of right upper quadrant is negative for suggestion of acute cholecystitis. CT scan is also negative for acute intra-abdominal pathology. Suspect that the leukocytosis is not new and that the discomfort may be a gastritis/GERD etiology. Patient received GI cocktail and will be discharged for follow-up with her primary care doctor and possible referral to Gastroenterology. Differential Diagnosis Differential Diagnoses: The differential diagnosis associated with the presentation includes Please see the discussion above Admission/Observation Consideration of admission/observation: Escalation of care including admission/observation considered Please see the discussion above Lab Data [facility] Lab Attestation statement: I reviewed the patient's lab results. Please see the discussion above 09/17/23 00:50 09/17/23 00:50 Labs: Lab Results 09/17/23 09/17/23 09/17/23 Range/Units 00:50 01:17 04:05 WBC 15.4 H (4.8-10.8) X10*3/uL RBC 4.39 (4.20-5.50) X10*6/uL Hgb 13.2 (12.0-16.0) g/dl Hct 39.5 (37.0-47.0) % MCV 90.0 (80.0-98.0) fL MCH 30.1 (27.0-33.0) pg MCHC 33.4 (31.0-35.0) g/dl RDW 12.9 (11.0-16.0) % Plt Count 273 (160-400) X10*3/uL MPV 10.7 (9.4-12.3) fL Immature Gran % (Auto) 0.4 (0.0-0.4) % Neut % (Auto) 73.6 H (45-73) % Lymph % (Auto) 20.2 (20-40) % [place] % (Auto) 4.7 (2-11) % Eos % (Auto) 0.8 (0-4) % Baso % (Auto) 0.3 (0-2) % Lymph # (Auto) 3.1 (1.2-4.9) X10*3/uL [place] # (Auto) 0.7 (0.1-1.2) X10*3/uL Eos # (Auto) 0.1 (0.0-0.4) X10*3/uL Baso # (Auto) 0.0 (0.0-0.2) X10*3/uL Abs Immat Gran (auto) 0.06 H (0.00-0.03) X10*3/uL Absolute Neuts (auto) 11.4 H (2.0-8.3) x10*3/uL Absolute Nucleated RBC 0.000 (0.0-0.012) X10*3/uL Nucleated RBC % (auto) 0.0 (0.0-0.2) /100WBC Sodium 138 (135-145) mmol/L Potassium 3.5 (3.3-5.1) mmol/L Chloride 101 (96-108) mmol/L Carbon Dioxide 25 (22-29) mmol/L Anion Gap 16 (12-20) BUN 10 (9-16) mg/dL Creatinine 0.79 (0.5-1.4) mg/dL Estim Creat Clear Calc 105.5 Estimated GFR > 60 Random Glucose 100 (60-115) mg/dL Lactic Acid 0.7 (0.5-2.0) mmol/L Calcium 9.0 (8.4-10.2) mg/dL Total Bilirubin 1.0 (0.0-1.0) mg/dL Direct Bilirubin 0.3 (0.0-0.5) mg/dL AST 76 H (5-31) U/L ALT 84 H (0-31) U/L Alkaline Phosphatase 135 H (39-117) U/L Total Protein 7.7 (6.5-8.0) g/dL Albumin 4.2 (3.5-5.0) g/dL Lipase 18 (8-78) U/L Beta HCG, Quant < 2 mIU/mL Urine Color Dark Yellow Urine Appearance Cloudy Urine pH 5.5 (5.0-9.0) Ur Specific [place] >= 1.030 H (1.005-1.025) Urine Protein 30 (1+) H (Neg-Trace) mg/dL Urine Glucose (UA) Negative (Negative) mg/dL Urine Ketones 15 (Negative) mg/dL Urine Blood Negative (Negative) Urine Nitrite Negative (Negative) Ur Leukocyte Esterase Negative (Negative) Urine RBC 11-20 H (0-2) /HPF Urine WBC 0-5 (0-5) /HPF Ur Squamous Epith Cells 11-20 (0-2) /HPF Urine Bacteria 4+ (None Seen) Hyaline Casts 0-2 (0-2) /LPF Urine Test NEGATIVE (NEGATIVE) Radiology Impression Discussion of test interpretation with radiology: I have reviewed the radiologist's reading. Radiologist Impression: Please see the discussion above External Record Review External record reviewed: Outpatient record, Prior outpatient labs and Prior outpatient radiology Medications Administered Discontinued Medications Generic Name Dose Route Start Last Admin Trade Name Freq PRN Reason Stop Dose Admin Sodium Chloride 1,000 mls @ 999 mls/hr 09/17/23 03:30 09/17/23 05:42 Ns IV 09/17/23 04:30 Infused .Q1H1M JEET Infusion Piperacillin Sod/Tazobactam 50 mls @ 100 mls/hr 09/17/23 04:39 09/17/23 05:42 Sod 3.375 gm/ Sodium Chloride IV 09/17/23 05:08 Infused ONCE ONE Infusion Iohexol 85 ml 09/17/23 04:18 09/17/23 04:19 Iohexol 350 Mg/Ml 100 Ml Infus..Btl IV 09/17/23 04:19 85 ml ONCE ONE Administration Discharge Plan Discharge Clinical Impression: Abdominal pain, Gastritis Patient Disposition: Home, Self-Care Instructions: Gastritis (ED), Diet for Stomach Ulcers and Gastritis (ED), Abdominal Pain (ED) Additional Instructions: 1. Resume all home medications as prescribed. 2. Please follow-up with your primary care doctor in the next 1-2 days. Return to the ER for any worsening symptoms. Prescriptions: New omeprazole 20 mg capsule,delayed release(DR/EC) 20 mg PO DAILY Qty: 30 0RF No Action Unisom (doxylamine) 25 mg tablet 12.5 mg PO BEDTIME PRN (Reason: sleep) Qty: 30 0RF pyridoxine (vitamin B6) 25 mg tablet 25 mg PO TID 30 Days Qty: 90 1RF Plus 29 mg iron- 1 mg tablet 1 tab PO DAILY 30 Days Qty: 30 11RF cephalexin [Keflex] 500 mg capsule 500 mg PO Q8H 7 Days Qty: 21 0RF mupirocin 2 % ointment 1 appl topical TID 7 Days Qty: 22 0RF azithromycin 250 mg tablet See Rx Instructions .ROUTE .COMPLEX Qty: 6 0RF Rx Instructions: take 500 mg today (day 1), then 250 mg for 4 days (days 2-5) acetaminophen [Tylenol Extra Strength] 500 mg tablet 1,000 mg PO QID PRN (Reason: fever or pain) Qty: 14 0RF oxycodone 5 mg tablet 5 mg PO BID PRN (Reason: pain) Qty: 10 0RF albuterol sulfate 0.63 mg/3 mL solution for nebulization 0.63 mg inhalation QID PRN (Reason: shortness of breath or wheezing) Qty: 75 0RF prednisone 20 mg tablet 40 mg PO DAILY 5 Days Qty: 10 0RF albuterol sulfate 90 mcg/actuation HFA aerosol inhaler 1 inh inhalation QID PRN (Reason: shortness of breath or wheezing) Qty: 8.5 0RF (DME) AeroEclipse II Nebulizer Misc See Rx Instructions .ROUTE .MEDSUPPLY Qty: 1 0RF Rx Instructions: As directed sulfamethoxazole-trimethoprim [Bactrim DS] 800-160 mg tablet 1 tab PO BID Qty: 14 0RF cephalexin 500 mg capsule 500 mg PO QID Qty: 28 0RF Referrals: [facility] [Primary Care Provider] -
[2023-09-17 00:55] LABS: MANUAL DIFF FLAG NO
[2023-09-17 00:58] LABS: Basophils Percent Auto 0.3 % (0-2); Eosinophils Absolute Auto 0.1 X10*3/uL (0.0-0.4); Eosinophils Percent Auto 0.8 % (0-4); Hematocrit 39.5 % (37.0-47.0); Hemoglobin 13.2 g/dl (12.0-16.0); Imm Gran Abs Auto 0.06 X10*3/uL (0.00-0.03); Imm Gran Pct Auto 0.4 % (0.0-0.4); Lymphocytes Absolute Auto 3.1 X10*3/uL (1.2-4.9); Lymphocytes Percent Auto 20.2 % (20-40); Mean Corpuscular HGB Conc 33.4 g/dl (31.0-35.0); Mean Corpuscular Hemoglobin 30.1 pg (27.0-33.0); Mean Platelet Volume 10.7 fL (9.4-12.3); Monocytes Absolute Auto 0.7 X10*3/uL (0.1-1.2); Monocytes Percent Auto 4.7 % (2-11); Neutrophils Absolute Auto 11.4 x10*3/uL (2.0-8.3); Neutrophils Percent Auto 73.6 % (45-73); Platelet Count 273 X10*3/uL (160-400); Red Blood Count 4.39 X10*6/uL (4.20-5.50); Red Cell Distribution Width 12.9 % (11.0-16.0); White Blood Count 15.4 X10*3/uL (4.8-10.8)
[2023-09-17 01:14] VITALS: BP 129/66; PULSE 79; RESP 16; TEMP 36.9; O2SAT 98
[2023-09-17 01:23] LABS: Alanine Aminotransferase 84 U/L (0-31); Albumin Level 4.2 g/dL (3.5-5.0); Alkaline Phosphatase 135 U/L (39-117); Anion Gap 16 (12-20); Aspartate Amino Transferase 76 U/L (5-31); Bilirubin Direct 0.3 mg/dL (0.0-0.5); Blood Urea Nitrogen 10 mg/dL (9-16); Carbon Dioxide 25 mmol/L (22-29); Chloride 101 mmol/L (96-108); Creatinine Clr Calc Pharmacy 105.5; Estimated Glomerular Filt Rate > 60; Glucose Random 100 mg/dL (60-115); HCG Quantitative < 2 mIU/mL; Lipase 18 U/L (8-78); Potassium 3.5 mmol/L (3.3-5.1); Sodium 138 mmol/L (135-145); Total Protein 7.7 g/dL (6.5-8.0)
[2023-09-17 01:24] LABS: Appearance Urine Cloudy; Color Urine Dark Yellow; Glucose Urine UA Negative (Negative); Leukocyte Esterase Urine Negative (Negative); Nitrite Urine Negative (Negative); PH 5.5 (5.0-9.0); Specific Gravity - Urine >= 1.030 (1.005-1.025); UMIC TRIGGER UACC YES; Urine Blood Negative (Negative); Urine Ketones 15 mg/dL (Negative); Urine Protein 30 (1+) mg/dL (Neg-Trace)
[2023-09-17 01:26] LABS: UPreg QC Valid YES; Urine Pregnancy NEGATIVE (NEGATIVE)
[2023-09-17 01:31] LABS: Bacteria Urine 4+ (None Seen); Hyaline Casts Urine 0-2 /LPF (0-2); WBC Urine 0-5 /HPF (0-5)
[2023-09-17] MEDS: 0.9 % Sodium Chloride 1,000 ML 999 ML IV (04:03)
[2023-09-17] MEDS: iohexoL 350 MG/ML 100 ML INFUS..BTL 85 ML IV (04:19)
[2023-09-17 04:27] LABS: Lactic Acid 0.7 mmol/L (0.5-2.0)
[2023-09-17] MEDS: Piperacillin Sodium/Tazobactam 3.375 GM in 0.9 % Sodium Chloride 50 ML IV (04:47)
[2023-09-17 06:24] VITALS: BP 145/80; PULSE 70; RESP 16; TEMP 37.2; O2SAT 100
[2023-09-17] MEDS: Sucralfate Oral Suspension 1 GM/10 ML ORAL.SUSP PO (06:24)
[2023-09-17] MEDS: Magnesium Hydrox/Alum Hydrox 30 ML ORAL.SUSP PO (06:24)
[2023-09-17] MEDS: Lidocaine HCl Viscous 2 % 15 ML SOLUTION 10 ML MUCOUS MEM (06:24)
== END 2023-09-17 06:31 | disposition home or self-care (01) ==
PROVIDERS: Physician Assistant Medical; Emergency Provider Student in an Organized Health Care Education/Training Program
DX: K29.70 Gastritis, unspecified, without bleeding (principal); R10.11 Right upper quadrant pain; R11.2 Nausea with vomiting, unspecified; Z79.899 Other long term (current) drug therapy
CPT/HCPCS: 36415; 74177; 76705; 80048; 80076; 81001; 81025; 83605; 83690; 84702; 85025; 87040; 99284; J2543; Q9967